=== PATIENT | female | born 1960 | race Caucasian/White ===

== ENCOUNTER → 2016-03-15 | Outpatient (CLI) | payer OTHER ==
[~2016-03-15] MED LIST: BNT10 PO; ESCI10TA17 PO; OMEP20CA9 PO; ONDA4TAB10 SL; OXYC1TAB3 PO; PRED20TA2 PO; PRT40 PO
[2016-03-15 10:12] LABS: ESTIMATED AVERAGE GLUCOSE 103 mg/dl; HA1C FLAG Normal (Normal)
== END | disposition home or self-care (01) ==
LOC: C.LAB 07:34
PROVIDERS: ATTEND Internal Medicine
DX: Z13.1 Encounter for screening for diabetes mellitus (principal)

== ENCOUNTER 2016-04-10 13:06 | Emergency (ER) | payer OTHER ==
[~2016-04-10] VITALS: Ht 167.6 cm; Wt 82.1 kg
[~2016-04-10 13:06] MED LIST changes: -OMEP20CA9 PO; -ONDA4TAB10 SL; -OXYC1TAB3 PO; -PRED20TA2 PO
[2016-04-10 13:09] VITALS: TEMP 37; Ht 167.6 cm; Wt 82.1 kg
[2016-04-10] MEDS ORDERED: SODIUM CHLORIDE 0.9% 1000ML 1,000 ML IV STA ×2 (13:54)
[2016-04-10] MEDS ORDERED: ONDANSETRON INJ 2 MG/ML 2 ML VIAL IV STA (13:54)
[2016-04-10] MEDS ORDERED: DEXAMETHASONE SOD INJ 10 MG/ML VIAL IV ONE (14:00)
[2016-04-10] MEDS ORDERED: MoRPHine SULFATE 4 MG/ML 1 ML CARP\\VIAL IV PRN (14:00)
--- NOTE | 2016-04-10 14:04 | EMERGENCY ROOM VISIT NOTE ---
History Report prepared by Gonzalo: Lynn Green Under the Supervision of: Dr. Parish Muhammad D.O. First contact with patient: 13:40 Chief Complaint: NECK PAIN Stated Complaint: POSSIBLE PINCHED NERVE IN NECK History of Present Illness The patient is a 56 year old female who presents to the Emergency Room with complaints of worsening neck pain that started around 0130 this morning. She is accompanied by her . She reports she tried turning over in bed this morning, when she first noticed the pain, which she rates as an 8/10 in severity. Movement worsens her pain. She denies any numbness or tingling in the arm. She admits to some increased weakness in her left arm and states the pain radiates up her neck and down into the arm. She also complains of a headache and states she is nauseous from the pain. She admits she was cross country skiing for 4.5 miles yesterday afternoon and states "I may have overexerted myself". The patient had surgery on her right bicep this past August, and reports the ligaments and muscles were "unsuccessfully attached" in her right arm to her right shoulder. She notes the pain feels similar to the bicep pain she experienced before surgery. Source of History: patient Onset: 0130 this morning Position: neck Symptom Intensity: 8/10 Timing: worsening Modifying Factors (Worsening): movement Associated Symptoms: + headache, + nausea, + weakness (weakness in left arm) , No numbness (numbness or tingling in left arm), No vomiting Review of Systems See HPI for pertinent positives & negatives. A total of 10 systems reviewed and were otherwise negative. Past Medical & Surgical Medical Problems: (1) Epigastric abdominal pain (2) Hemorrhoids (3) Poison raul dermatitis (4) Vaginal bleeding Surgical Problems: (1) History of section (2) History of hysterectomy Family History Diabetes mellitus MOTHER Hypertension MOTHER Social History Smoking Status: Never Smoker Alcohol Use: none Drug Use: none Marital Status: Housing Status: lives with family Occupation Status: employed Current/Historical Medications Scheduled Omeprazole (Prilosec), 20 MG PO DAILY Ondasetron Odt (Zofran Odt), 4 MG SL Q6H Prednisone (Prednisone Tab), 40 MG PO DAILY Scheduled PRN Oxycodone Immediate Rel Tab (Roxicodone Ir), 1-2 TAB PO Q4H PRN for Severe Pain Allergies Coded Allergies: Sulfamethoxazole w/Trimethoprim (Verified Allergy, Intermediate, JOINTS SORE, 04/10/16) Aspirin (Verified Adverse Reaction, Unknown, 04/10/16) Physical Exam Vital Signs Date Time Temp Pulse Resp B/P Pulse Ox O2 Delivery O2 Flow Rate FiO2 04/10/16 17:49 90 16 122/69 97 Room Air 04/10/16 16:36 76 20 131/74 97 Room Air 04/10/16 14:30 73 04/10/16 14:28 71 20 124/79 98 Room Air 04/10/16 13:09 37.0 91 18 136/78 96 Room Air Physical Exam GENERAL: Patient is awake, alert, very anxious and uncomfortable appearing. EYES: The conjunctivae are clear. The pupils are round and reactive. EARS, NOSE, MOUTH AND THROAT: The nose is without any evidence of any deformity. Mucous membranes are moist tongue is midline NECK: Diffuse tenderness noted to palpation, significantly diminished ROM, tenderness with palpation of right trapezius. RESPIRATORY: Normal respiratory effort is noted there is no evidence of wheezing rhonchi or rales CARDIOVASCULAR: Regular rate and rhythm noted there no murmurs rubs or gallops normal S1 normal S2 GASTROINTESTINAL: The abdomen is soft. Bowel sounds are present in all quadrants. Abdomen is nontender BACK: No midline tenderness or or step-off noted range of motion in flexion extension as well as rotation no signs of muscle spasm noted MUSCULOSKELETAL/EXTREMITIES: There is no evidence of gross deformity full range of motion is noted in the hips and shoulders SKIN: There is no obvious evidence of any rash. There are no petechiae, pallor or cyanosis noted. NEUROLOGIC: Patient is awake alert and oriented x3. 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 Comparing median, ulnar and radial nerve distally, patellar tenderness. Reflexes 1+ bilaterally. Medical Decision & Procedures ER Provider Diagnostic Interpretation: These MRI's were reviewed and interpreted by the radiologist and reviewed by the radiologist. Brain MRI WITHOUT CONTRAST IMPRESSION: No acute intracranial abnormality. Electronically signed by: Ji Low M.D. 04/10/2016 4:41 PM CERVICAL SPINE MRI IMPRESSION: 1. Mild right neural foraminal narrowing at C3-C4. 2. Mild right and moderate left neural foraminal narrowing at C5-C6. 3. No disc herniations. No significant central canal or neural foraminal narrowing. 4. A 1.7 cm lesion within the T4 spinous processes. This appears to represent an atypical hemangioma. There is no surrounding edema. Follow-up nonemergent bone scan should be performed to exclude the less likely possibility of a metabolically active lesion. Electronically signed by: Ji Low M.D. 04/10/2016 4:49 PM Laboratory Results 04/10/16 14:10 Red Blood Count 4.81, Mean Corpuscular Volume 86.3, Mean Corpuscular Hemoglobin 29.3, Mean Corpuscular Hemoglobin Concent 34.0, Mean Platelet Volume 9.5, Neutrophils (%) (Auto) 63.9, Lymphocytes (%) (Auto) 25.3, Monocytes (%) (Auto) 7.4, Eosinophils (%) (Auto) 2.6, Basophils (%) (Auto) 0.6, Neutrophils # (Auto) 4.14, Lymphocytes # (Auto) 1.64, Monocytes # (Auto) 0.48, Eosinophils # (Auto) 0.17, Basophils # (Auto) 0.04 04/10/16 14:10 Test 04/10/16 14:10 White Blood Count 6.48 K/uL (4.8-10.8) Red Blood Count 4.81 M/uL (4.2-5.4) Hemoglobin 14.1 g/dL (12.0-16.0) Hematocrit 41.5 % (37-47) Mean Corpuscular Volume 86.3 fL (80-100) Mean Corpuscular Hemoglobin 29.3 pg (25-34) Mean Corpuscular Hemoglobin Concent 34.0 g/dl (32-36) Platelet Count 299 K/uL (130-400) Mean Platelet Volume 9.5 fL (7.4-10.4) Neutrophils (%) (Auto) 63.9 % Lymphocytes (%) (Auto) 25.3 % Monocytes (%) (Auto) 7.4 % Eosinophils (%) (Auto) 2.6 % Basophils (%) (Auto) 0.6 % Neutrophils # (Auto) 4.14 K/uL (1.4-6.5) Lymphocytes # (Auto) 1.64 K/uL (1.2-3.4) Monocytes # (Auto) 0.48 K/uL (0.11-0.59) Eosinophils # (Auto) 0.17 K/uL (0-0.5) Basophils # (Auto) 0.04 K/uL (0-0.2) RDW Standard Deviation 42.3 fL (36.4-46.3) RDW Coefficient of Variation 13.3 % (11.5-14.5) Immature Granulocyte % (Auto) 0.2 % Immature Granulocyte # (Auto) 0.01 K/uL (0.00-0.02) Anion Gap 10.0 mmol/L (3-11) Est Creatinine Clear Calc Drug Dose 83.7 ml/min Estimated GFR () 92.7 Estimated GFR (Non- 79.9 BUN/Creatinine Ratio 21.3 (10-20) Calcium Level 8.8 mg/dl (8.5-10.1) Total Bilirubin 0.4 mg/dl (0.2-1) Direct Bilirubin mg/dl (0-0.2) Aspartate Amino Transf (AST/SGOT) 25 U/L (15-37) Alanine Aminotransferase (ALT/SGPT) 28 U/L (12-78) Alkaline Phosphatase 73 U/L (45-117) Total Protein 7.9 gm/dl (6.4-8.2) Albumin 4.0 gm/dl (3.4-5.0) Lipase 183 U/L (73-393) Chemistry Specimen Hemolysis Laboratory results per my review. Medications Administered Medications (Trade) Dose Ordered Sig/Agustín Route Start Time Stop Time Status Last Admin Dose Admin Sodium Chloride (Nss 1000ml) 1,000 ml @ 999 mls/hr Q1H1M STAT IV 04/10/16 13:54 04/10/16 14:54 DC 04/10/16 14:28 999 MLS/HR Morphine Sulfate (MoRPHine SULFATE INJ) 4 mg Q15M PRN IV 04/10/16 14:00 04/10/16 19:50 DC 04/10/16 14:12 4 MG Ondansetron HCl (Zofran Inj) 4 mg NOW STAT IV 04/10/16 13:54 04/10/16 13:56 DC 04/10/16 14:11 4 MG Dexamethasone Sodium Phosphate (Decadron Inj) 10 mg NOW ONCE IV 04/10/16 14:00 04/10/16 14:01 DC 04/10/16 14:11 10 MG Lorazepam (Ativan Inj) 2 mg STK-MED ONCE .ROUTE 04/10/16 14:31 04/10/16 14:33 DC 04/10/16 14:34 2 MG ED Course 1350: The patient was evaluated in room C2B. A complete history and physical examination were performed. 1354: Zofran 4 mg IV, NSS 1000 ml @ 125 mls/hr IV, NSS 1000 ml @ 999 mls/hr IV. 1400: Decadron 10 mg IV, Morphine Sulfate 4 mg IV. 1431: Ativan 2 mg PO. 1703: I reevaluated the patient. She is feeling much better. I discussed her results and discharge instructions and she verbalized complete understanding and agreement. Medical Decision Prior records/ancillary studies reviewed. Triage Nursing notes reviewed. The patient's history was concerning for headache. Differential diagnosis: Etiologies such as migraine headache, meningitis, sinusitis, CO exposure, ICH, SAH, infection, tumor, headache, sinus thrombosis, arterial dissection, as well as others were entertained. The patient is a 56-year-old female who presented to the emergency department with significant right sided neck pain. The patient was doing cross-country skiing and thinks she may have overextended herself. The patient did not have any focal neurologic deficits but had very severe pain. I was concerned that this could represent cervical radiculopathy. The patient was not found have any signs of disc herniation. She was treated with IV fluids IV pain medicine and IV antiemetics. She was also given steroids. On subsequent reevaluation she was significant improved. I do feel the patient will require follow-up with her primary care physician for the possibility of further treatment which could include referral to a pain specialist a spinal specialist or even physical therapy. She was encouraged to rest and avoid any strenuous activity. She was also encouraged to continue all medications as prescribed and return to the emergency department immediately if symptoms change worsen or the need arises. Impression Primary Impression: Cervical radiculopathy Additional Impressions: Abnormal MRI Trapezius muscle spasm Scribe Attestation The scribe's documentation has been prepared under my direction and personally reviewed by me in its entirety. I confirm that the note above accurately reflects all work, treatment, procedures, and medical decision making performed by me. Departure Information Dispostion Home / Self-Care Prescriptions Oxycodone Immediate Rel Tab (ROXICODONE IR) 5 Mg Tab 1-2 TAB PO Q4H Y for Severe Pain, #24 TAB Prov: Parish Muhammad, DO 04/10/16 Ondasetron Odt (ZOFRAN ODT) 4 Mg Tab 4 MG SL Q6H for Nausea, #15 TAB Prov: Parish Muhammad, DO 04/10/16 Omeprazole (PRILOSEC) 20 Mg Cap 20 MG PO DAILY, #30 CAP Prov: Parish Muhammad, DO 04/10/16 Prednisone (Prednisone Tab) 20 Mg Tab 40 MG PO DAILY, #12 TAB Prov: Parish Muhammad, DO 04/10/16 Referrals No Doctor, Assigned (PCP) Patient Instructions ED Cervical Radiculopathy, My [facility] Additional Instructions Rest and avoid any strenuous activity. Avoid any heavy lifting. Call your family doctor in the morning to schedule a follow-up appointment. Continue all medications as prescribed. Discuss with your family the possibility that you may need a bone scan to further evaluate the abnormality noted on MRI of the neck. Problem Qualifiers
[2016-04-10 14:16] LABS: BASO % 0.6 %; BASO ABS # 0.04 K/uL (0-0.2); COMPLETE YES; EOS % 2.6 %; HEMATOCRIT 41.5 % (37-47); IG% 0.2 %; LYMPH % 25.3 %; LYMPH ABS # 1.64 K/uL (1.2-3.4); MEAN CELL VOLUME 86.3 fL (80-100); MEAN CORPUSCULAR HEMOGLOBIN 29.3 pg (25-34); MEAN PLATELET VOLUME 9.5 fL (7.4-10.4); MONO % 7.4 %; NEUT % 63.9 %; PLATELET COUNT 299 K/uL (130-400); RED BLOOD COUNT 4.81 M/uL (4.2-5.4); WHITE BLOOD COUNT 6.48 K/uL (4.8-10.8)
[2016-04-10] MEDS ORDERED: LORAZEPAM 2 MG/ML 1 ML VIAL ONE (14:31)
[2016-04-10 15:10] LABS: ALKALINE PHOSPHATASE 73 U/L (45-117); ALT/SGPT 28 U/L (12-78); AST/SGOT 25 U/L (15-37); BLOOD UREA NITROGEN 18 mg/dl (7-18); BUN/CREATININE RATIO 21.3 (10-20); CALCIUM 8.8 mg/dl (8.5-10.1); CARBON DIOXIDE 25 mmol/L (21-32); CHLORIDE 106 mmol/L (98-107); CREATININE 0.83 mg/dl (0.60-1.20); GLUCOSE 100 mg/dl (70-99); POTASSIUM 4.4 mmol/L (3.5-5.1); SODIUM 141 mmol/L (136-145)
--- NOTE | 2016-04-10 16:42 | DIAGNOSTIC IMAGING REPORT ---
Brain MRI WITHOUT CONTRAST HISTORY: Headache. Neck pain. TECHNIQUE: Multiplanar multisequence MRI of the brain was performed without the use of contrast. COMPARISON STUDY: None. FINDINGS: There are no areas of restricted diffusion to suggest acute infarction. The midline structures are intact. The paranasal sinuses are clear. The mastoid air cells are clear. The ventricles and sulci are within normal limits for age. There is no mass, hematoma, midline shift. The major vascular flow-voids at the skull base are well maintained. IMPRESSION: No acute intracranial abnormality. Electronically signed by: Ji Low M.D. 04/10/2016 4:41 PM Dictated Date/Time: 04/10/2016 4:34 PM
--- NOTE | 2016-04-10 16:50 | DIAGNOSTIC IMAGING REPORT ---
CERVICAL SPINE MRI HISTORY: Headache and neck pain.] Lower extremity pain. TECHNIQUE: Multiplanar multisequence MRI of the cervical spine was performed without the use of contrast. COMPARISON STUDY: None. FINDINGS: Alignment is intact. No fractures. Mild disc space narrowing at C5-C6. Prevertebral soft tissues and the C1-C2 interval are intact. The cervical spinal cord is normal in course, caliber, and signal intensity. A 1.7 cm T1 and T2 hyperintense lesion at the T4 spinous process. No surrounding edema. This does not completely suppress on the fat sat sequences. This may represent an atypical hemangioma. C2-C3: No significant central canal or neural foraminal narrowing. C3-C4: No significant central canal narrowing. Mild right neural foraminal narrowing due to the VERTEBRAL and facet hypertrophy. C4-C5: No significant central canal or neural foraminal narrowing. C5-C6: Tiny broad-based posterior disc osteophyte complex. No central canal narrowing. Mild right and moderate left neural foraminal narrowing due to the uncovertebral hypertrophy. C6-C7: No significant central canal or neural foraminal narrowing. C7-T1: No significant central canal or neural foraminal narrowing. IMPRESSION: 1. Mild right neural foraminal narrowing at C3-C4. 2. Mild right and moderate left neural foraminal narrowing at C5-C6. 3. No disc herniations. No significant central canal or neural foraminal narrowing. 4. A 1.7 cm lesion within the T4 spinous processes. This appears to represent an atypical hemangioma. There is no surrounding edema. Follow-up nonemergent bone scan should be performed to exclude the less likely possibility of a metabolically active lesion. Electronically signed by: Ji Low M.D. 04/10/2016 4:49 PM Dictated Date/Time: 04/10/2016 4:41 PM
[2016-04-10] MEDS ORDERED: ONDA4TAB10 SL (17:08)
[2016-04-10] MEDS ORDERED: OMEP20CA9 PO (17:08)
[2016-04-10] MEDS ORDERED: PRED20TA2 PO (17:08)
[2016-04-10] MEDS ORDERED: OXYC1TAB3 PO (17:08)
[2016-04-10 17:49] VITALS: BP 122/69; PULSE 90; O2SAT 97
== END 2016-04-10 17:51 | disposition home or self-care (01) ==
LOC: C.EDB 13:07 → C.EDC 17:51
DX: M54.12 Radiculopathy, cervical region (principal); R93.7 Abnormal findings on diagnostic imaging of other parts of musculoskeletal system; M62.830 Muscle spasm of back; R51 Headache; Z90.710 Acquired absence of both cervix and uterus; Z83.3 Family history of diabetes mellitus; Z82.49 Family history of ischemic heart disease and other diseases of the circulatory system

== ENCOUNTER → 2016-06-28 | Outpatient (CLI) | payer OTHER ==
[~2016-06-28] MED LIST changes: -BNT10 PO; -ESCI10TA17 PO; +ONDA4TAB10 SL; +OXYC1TAB3 PO; +PRED20TA2 PO; -PRT40 PO
--- NOTE | 2016-06-28 13:19 | DIAGNOSTIC IMAGING REPORT ---
BONE SCAN 3PHASE WHOLE BODY CLINICAL HISTORY: R93.7 Abnormal MRI, thoracic [id number] TECHNIQUE: Immediately and 3 hours following the intravenous administration of 26 mCi of technetium 99 M MDP, dedicated views of the thoracic spine and whole body bone scan was performed COMPARISON STUDY: Cervical spine MRI 04/10/2016. FINDINGS: No abnormal radiotracer uptake on the flow or pool sequences. Mild radiotracer uptake on the delayed sequences seen within the lower lumbar spine, medial knees, hips, and shoulders suggestive of degenerative change. No suspicious areas of radiotracer uptake within the axial or appendicular skeleton. Question of faint radiotracer uptake at the T4 spinous process is of doubtful clinical significance given the low-level activity. IMPRESSION: Question of faint radiotracer uptake at the T4 spinous process is of doubtful clinical significance given the low-level activity. In conjunction with the prior MRI, these findings favor a hemangioma at this location. Electronically signed by: Ji Low M.D. 06/28/2016 1:17 PM Dictated Date/Time: 06/28/2016 1:11 PM
== END | disposition home or self-care (01) ==
LOC: C.NUCL 09:23
PROVIDERS: ATTEND Physician Assistant Medical
DX: R93.7 Abnormal findings on diagnostic imaging of other parts of musculoskeletal system (principal)

== ENCOUNTER → 2017-07-18 | Outpatient (CLI) | payer OTHER | END | disposition home or self-care (01) | LOC: C.LAB 13:21 | PROVIDERS: ATTEND Internal Medicine | DX: Z11.59 Encounter for screening for other viral diseases (principal); W57.XXXA Bitten or stung by nonvenomous insect and other nonvenomous arthropods, initial encounter ==